=== PATIENT | female | born 1980 | race Caucasian/White ===

== ENCOUNTER 2017-07-16 11:37 | Emergency (ER) | payer BC ==
[~2017-07-16] VITALS: Ht 160 cm; Wt 72.6 kg
[~2017-07-16 11:37] MED LIST: LEVOTHYROXIN0.137 M1 PO; MEDROLDOSEPACK PO; PROAIR HFA8.5 GM INH; ZPAK PO
[2017-07-16] MEDS ORDERED: XANAX 0.5 MG0.5 MG PO (11:49)
[2017-07-16] MEDS ORDERED: TRAZODONE HCL100 MG PO (11:49)
[2017-07-16] MEDS ORDERED: ZOFRAN ODT4 MG PO (12:12)
[2017-07-16 12:29] VITALS: BP 122/84
== END 2017-07-16 12:30 | disposition home or self-care (01) ==
LOC: M.ERS 11:37
DX: B34.9 Viral infection, unspecified (principal)

== ENCOUNTER 2018-06-08 14:43 | Emergency (ER) | payer OTHER ==
[~2018-06-08] VITALS: Ht 160 cm; Wt 81.7 kg
[~2018-06-08 14:43] MED LIST changes: +TRAZODONE HCL100 MG PO; +XANAX 0.5 MG0.5 MG PO; +ZOFRAN ODT4 MG PO
[2018-06-08 15:00] LABS: URINE BILIRUBIN NEGATIVE (Negative); URINE BLOOD TRACE (Negative); URINE CLARITY CLEAR; URINE COLOR YELLOW; URINE GLUCOSE-RANDOM NEGATIVE (Negative); URINE KETONES NEGATIVE (Negative); URINE LEUKOCYTES-REFLEX TRACE (Negative); URINE NITRITE-REFLEX NEGATIVE (Negative); URINE PROTEIN NEGATIVE (Negative); URINE SPECIFIC GRAVITY 1.015 (1.005-1.030); URINE UROBILINOGEN 0.2 E.U./dl (0.2-1.0)
[2018-06-08 15:16] LABS: BACTERIA-REFLEX 1-9 Few /HPF (None Seen); CASTS None Seen /LPF (None Seen); CRYSTALS None Seen /LPF (None Seen); MUCUS >6 Heavy strn/LPF (None Seen); SQUAMOUS 4-10 Moderate /LPF (0-3); URINE RBC 0-2 Rare /HPF (0-2); URINE WBC-REFLEX 0-5 Rare /HPF (0-5)
[2018-06-08 15:22] LABS: ABSOLUTE BASOPHILS 0.1 thou/uL (0.0-0.2); ABSOLUTE EOSINOPHILS 0.1 thou/uL (0.0-0.7); ABSOLUTE LYMPHOCYTES 2.8 thou/uL (0.8-5.3); ABSOLUTE MONOCYTES 0.4 thou/uL (0.0-1.2); ABSOLUTE NEUTROPHILS 6.8 thou/uL (1.6-8.1); EOSINOPHILS 1.1 %; HEMATOCRIT 40.8 % (37.0-47.0); HEMOGLOBIN 13.5 gm/dL (12.0-15.0); LYMPHOCYTES 27.5 %; MCH 29.5 pg (26.0-34.0); MCV 89.3 fL (80.0-100.0); MONOCYTES 4.3 %; MPV 8.3 fl. (7.2-11.1); NUCLEATED RBCS 0 /100WBC; PLATELET COUNT* 394 thou/uL (150-400); POLYS 66.1 %; RBC 4.57 mil/uL (4.20-5.00); RDW-CV 13.2 % (10.5-14.5); WBC 10.3 thou/uL (4.0-11.0)
[2018-06-08 15:31] LABS: POTASSIUM 4.1 mmol/L (3.5-5.1)
[2018-06-08 15:35] LABS: ALBUMIN 3.6 g/dL (3.4-5.0); TOTAL BILIRUBIN 0.4 mg/dL (<0.1-1.0); TOTAL PROTEIN 7.3 g/dL (6.4-8.2)
[2018-06-08] MEDS ORDERED: DOXYCYCLINE 10100 MG PO (17:21)
[2018-06-08 17:49] VITALS: BP 120/83
== END 2018-06-08 17:56 | disposition home or self-care (01) ==
LOC: M.ERS 14:43
PROVIDERS: Nurse Practitioner Family
DX: Z20.2 Contact with and (suspected) exposure to infections with a predominantly sexual mode of transmission (principal); N39.0 Urinary tract infection, site not specified; F17.210 Nicotine dependence, cigarettes, uncomplicated; R11.2 Nausea with vomiting, unspecified